=== PATIENT | female | born 2000 | race Caucasian/White ===

== ENCOUNTER → 2024-05-19 | Outpatient (CLI) | payer BC ==
[2024-05-19 14:13] VITALS: BP 126/86; PULSE 86; RESP 16; TEMP 99
--- NOTE | 2024-05-19 14:44 | P.SLEEP ---
History of Present Illness DATE: 05/19/2024 CONSULTATION/NEW PATIENT EVALUATION HISTORY OF PRESENT ILLNESS/SLEEP-WAKE EVALUATION: Will need to-year-old lady had been evaluated in the sleep center for possible obstructive sleep apnea hypopnea syndrome. SLEEP SCHEDULE: Usually sleep schedule from [id number] PM to 6:45 AM on weekdays and from 10 PM to 8 AM on weekend. FALLING ASLEEP: Patient does have problems with falling asleep. DURING SLEEP: Patient wakes up from sleep 3 times. No history of hypnogogical hallucinations, sleep paralysis, or cataplexy. DURING THE DAY/WAKE STATE: Patient feels sleepiness during the day. [place] sleepiness scale is significantly increased to 15. Patient takes 1 nap at afternoon time. PAST MEDICAL HISTORY: Depression, acid reflux, underdeveloped soft palate. PAST SURGICAL HISTORY: Orrick teeth removed. MEDICATIONS: Please see below. SOCIAL HISTORY: Please see below. FAMILY HISTORY: Please see below. REVIEW OF SYSTEMS: Awakenings from sleep, sleepiness during the day. No fevers. No double vision. No recent chest pain. No shortness of breath. No abdominal pain. No bleeding episodes. No blood in urine. No seizure episodes. PHYSICAL EXAMINATION: GENERAL: A pleasant patient without any distress. VITAL SIGNS: Please see below, weight 255 pounds, BMI 40.5. HEENT: PERRLA, EOMI. Evaluation of oropharynx showed tongue protrudes midline, short distance between soft palate and posterior pharyngeal wall. NECK: Supple. No JVD. Thyroid is not palpable. 15.5 inches in circumference. LUNGS: Clear to percussion and to auscultation. Good air exchange. No wheezing or rhonchi. HEART: S1, S2 regular. No murmurs, gallops or rubs. ABDOMEN: Soft and nontender. Bowel sounds are present. No organomegaly appreciated. EXTREMITIES: No clubbing or cyanosis. SENIOR CARE PROVIDER: Awake, alert, and oriented x3. Cranial nerves 2 to 7 intact. There is no fasciculation or atrophy noted. No focal deficits observed. ASSESSMENT: 1. Awakenings from sleep, sleepiness during the day. Possible obstructive sleep apnea hypopnea syndrome. 2. Sleepiness with high [place] Sleepiness Scale of 15 dictate necessity to include hypersomnia differential diagnosis. 3. History of depression. 4. Obesity, BMI 40.5. 5 acid reflux. 6 . Underdeveloped soft palate. PLAN: 1. Home sleep apnea test for evaluation of patient's breathing during sleep. 2. Following plan after reading sleep study. If sleep study will be negative for obstructive sleep apnea hypopnea syndrome patient will need multiple sleep latency test. 3. Preferable position during sleep on the side. 4. No driving if patient feels any sleepiness. Patient is aware of civil and criminal liability for unsafe driving. 5. Sleep hygiene with regular sleep time for at least 7.5-8 hours. 6. Watching and losing weight. Thank you very much for referring this patient for consultation. Sincerely, Elder Aquino MD, PhD, FAASM. Diplomat of [place] Board of Sleep [employer], Sleep Medicine Board by [place] [employer] Specialities [place] [employer] of [employer] of [facility] [place] cc: Tae Alex MD Past Medical History Past Medical History: GERD/Reflux History of Any Multi-Drug Resistant Organisms: None Reported Additional Past Surgical History / Comment(s): Orrick Tooth Extraction Past Anesthesia/Blood Transfusion Reactions: No Reported Reaction Past Psychological History: Depression Smoking Status: Never smoker Past Alcohol Use History: Occasional Past Drug Use History: Marijuana Additional Drug Use History / Comment(s): tried Marijuana - Past Family History Father Family Medical History: Diabetes Mellitus, GERD/Reflux, Hypertension Additional Family Medical History / Comment(s): snoring Medications and Allergies Home Medications Medication Instructions Recorded Confirmed Type Omeprazole 40 mg PO DAILY 05/19/24 05/19/24 History Venlafaxine HCl [Effexor XR] 150 mg PO DAILY 05/19/24 05/19/24 History norethindrone-e.estradioL-iron See Rx Instructions .ROUTE .COMPLEX 05/19/24 05/19/24 History [Junel Fe 1.5 mg-30 Mcg Tablet] Physical Exam Vitals: Vital Signs Temp Pulse Resp BP Pulse Ox 05/19/24 14:11 99 F 86 16 126/86 100 Intake and Output 05/18/24 05/19/24 05/19/24 22:59 06:59 14:59 Other: Weight 106.594 kg Sleep Note - Sleep Data ESS Total: 15 - Sleep Note Sleep Note: Temperature: 99 F Pulse Rate: 86 Respiratory Rate: 16 Blood Pressure: 126/86 SpO2: 100 Height: 5 ft 6.5 in Weight: 106.594 kg BMI: Neck Circumference: 15.5
== END ==
LOC: 3 N SLEEP 13:50
PROVIDERS: ATTEND Internal Medicine
DX: G47.33 Obstructive sleep apnea (adult) (pediatric) (principal); G47.10 Hypersomnia, unspecified; E66.01 Morbid (severe) obesity due to excess calories; K21.9 Gastro-esophageal reflux disease without esophagitis; Q38.5 Congenital malformations of palate, not elsewhere classified; Z68.41 Body mass index [BMI] 40.0-44.9, adult; Z79.899 Other long term (current) drug therapy
CPT/HCPCS: 99202

== ENCOUNTER → 2024-11-09 | Outpatient (CLI) | payer BC ==
--- NOTE | 2024-11-10 10:51 | P.PCN ---
Description of Procedure: CLINICAL: A home sleep apnea test has been done for confirmation of possible obstructive sleep apnea-hypopnea syndrome. DESCRIPTION OF PROCEDURE: RESULTS: Recording time was 6 hours 58 minutes. Evaluation time was 6 hours 46 minutes. Evaluation time is sufficient for making conclusion about results of the test. Raw data of sleep recording has been reviewed and is adequate. Respiratory channel showed 4 apneas and 56 hypopneas. Apnea-hypopnea index was 8.9 per hour. Pulse rate in the range between minimum 67, maximum 115, average 84 by computer calculation. Lowest desaturation was 68%. IMPRESSION: 1. Obstructive Sleep Apnea Hypopnea Syndrome in mild range, although home sleep apnea test may underestimate severity of obstructive sleep apnea hypopnea syndrome. 2. Patient presents with symptoms of significant excessive daytime sleepiness with [place] Sleepiness Scale increased to 15. Please see other impressions from consultation. PLAN: 1. The patient will be started on auto-PAP treatment for correction of respiratory abnormallities during sleep. 2. I will see patient for follow up visit to discuss results of the test, evaluate clinical response on treatment with PAP therapy and make any necessary adjustments related to mask fitting, pressure, and humidification. If patient will continue symptoms of significant excessive daytime sleepiness on treatment with CPAP we may consider multiple sleep latency test. 3. Watching and losing weight. 4. Sleep hygiene with regular time in bed for at least 8 hours. 5. No driving if feeling any sleepiness. Thank you very much for allowing me to participate in the management of your patient. Sincerely, Elder Aquino MD, PhD, FAASM Diplomat of [place] [employer] Sleep Medicine Board of [place] [employer] Administrative Officer of [facility] [place] cc: Tae Alex MD
== END ==
LOC: 3 N SLEEP 11:01
PROVIDERS: ATTEND Internal Medicine
DX: G47.33 Obstructive sleep apnea (adult) (pediatric) (principal)